=== PATIENT | female | born 2000 | race Caucasian/White ===

== ENCOUNTER 2021-06-22 18:25 | Emergency (ER) | payer OTHER ==
--- NOTE | 2021-06-24 23:24 | ERPHSYRPT ---
- History of Present Illness Physician History: Patient left without being seen Allergies/Adverse Reactions: adhesive tape Allergy (Verified 06/22/21 18:51) aloe vera Allergy (Verified 06/22/21 18:51) fentanyl Allergy (Verified 06/22/21 18:51) furosemide [From Lasix] Allergy (Verified 06/22/21 18:51) haloperidol [From Haldol] Allergy (Verified 06/22/21 18:51) magnesium Allergy (Verified 06/22/21 18:51) metoclopramide [From Reglan] Allergy (Verified 06/22/21 18:51) Home Medications: Ondansetron HCl [Zofran] 1 tab SL Q4H PRN PRN 06/22/21 [History] - Nursing Vital Signs Nursing Vital Signs: Pain Scale Pain Intensity 0 - Departure Departure Disposition: Left without being seen Clinical Impression: Patient left without being seen Condition: Stable Critical Care Time: No Referrals: DOCTOR,NO FAMILY [Primary Care Provider] - Follow up/PCP as directed
== END 2021-06-22 18:30 | disposition left against medical advice (07) ==
LOC: ED 18:25
DX: R10.9 Unspecified abdominal pain (principal); O20.9 Hemorrhage in early pregnancy, unspecified; Z3A.01 Less than 8 weeks gestation of pregnancy
CPT/HCPCS: 99281

== ENCOUNTER 2021-06-22 18:43 | Emergency (ER) | payer OTHER ==
--- NOTE | 2021-06-22 19:32 | ERPHSYRPT ---
- History of Present Illness Time Seen by Provider: 06/22/21 19:10 Source: patient Exam Limitations: no limitations Patient Subjective Stated Complaint: abdominal pain with Triage Nursing Assessment: Patient brought back to ED Via w/c and transferred self to bed. Patient A+O X3. Patient's skin pink, warm and dry. Patient complains of lower abdominal pain constant cramping 7/10 that started today with heaviness in her vagina. Patient stated earlier she had heavy bright red bleeding from vagina, but currently not bleeding. Patient complains of N/V. 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 Physician History: This is a 20-year-old white female who is approximately [address] Harp. Patient did obtain blood work earlier from [facility]. Patient has a history of stillbirth and spontaneous miscarriages in the past. Patient denies back pain. Patient is in here this evening because she had some vaginal bleeding earlier today which has stopped. However, she has had worsening suprapubic pain. She arrives to the emergency department with her vital signs stable but uncomfortable appearing Timing/Duration: today, hour(s) (1) Activites at Onset: none Quality: pressure, sharpness Onset Location: suprapubic Pain Radiation: none Severity of Pain-Max: moderate Severity of Pain-Current: moderate Sexual intercourse history: non-contributory Modifying Factors: Improves With: nothing Associated Symptoms: abdominal pain (Suprapubic), vaginal discharge (Had some vaginal bleeding that was mild earlier today but that has stopped.) Allergies/Adverse Reactions: adhesive tape Allergy (Verified 06/22/21 18:51) aloe vera Allergy (Verified 06/22/21 18:51) fentanyl Allergy (Verified 06/22/21 18:51) furosemide [From Lasix] Allergy (Verified 06/22/21 18:51) haloperidol [From Haldol] Allergy (Verified 06/22/21 18:51) magnesium Allergy (Verified 06/22/21 18:51) metoclopramide [From Reglan] Allergy (Verified 06/22/21 18:51) Home Medications: Ondansetron HCl [Zofran] 1 tab SL Q4H PRN PRN 06/22/21 [History] Hx Influenza Vaccination/Date Given: No Hx Pneumococcal Vaccination/Date Given: No Travel Risk - International Travel Have you traveled outside of the country in past 3 weeks: No - Coronavirus Screening Are you exhibiting any of the following symptoms?: No Close contact with a COVID-19 positive Pt in past 14-21 Days: No - Vaccine Status Have you recieved a Covid-19 vaccination: No - Review of Systems Constitutional: No Symptoms Eyes: No Symptoms Ears, Nose, & Throat: No Symptoms Respiratory: No Symptoms Cardiac: No Symptoms Abdominal/Gastrointestinal: Abdominal Pain (Suprapubic tenderness) Genitourinary Symptoms: No Symptoms Musculoskeletal: No Symptoms Skin: No Symptoms Neurological: No Symptoms Psychological: No Symptoms Endocrine: No Symptoms Hematologic/Lymphatic: No Symptoms Immunological/Allergic: No Symptoms All Other Systems: Reviewed and Negative - Past Medical History Pertinent Past Medical History: Yes Respiratory History: Asthma Psycho-Social History: Anxiety, Depression Other Medical History: Alpha 1. 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 Rhinoplasty twice. Right shoulder - Social History Smoking Status: Never smoker Exposure to second hand smoke: Yes Drug Use: none Patient Lives Alone: No - Female History Hx Last Menstrual Period: April Hx Now: Yes Expected Date of Delivery: 02/18/22 - Nursing Vital Signs Nursing Vital Signs: Initial Vital Signs Temperature 97.0 F 06/22/21 18:53 Pulse Rate 85 06/22/21 18:53 Respiratory Rate 18 06/22/21 18:53 Blood Pressure 107/73 06/22/21 18:53 O2 Sat by Pulse Oximetry 98 06/22/21 18:53 Pain Scale Pain Intensity 7 - Physical Exam General Appearance: no apparent distress, alert, anxiety Eye Exam: PERRL/EOMI, eyes nml inspection Ears, Nose, Throat Exam: normal ENT inspection, moist mucous membranes Neck Exam: normal inspection, non-tender, supple, full range of motion Respiratory Exam: normal breath sounds, lungs clear, airway intact, No chest tenderness, No respiratory distress Cardiovascular Exam: regular rate/rhythm, normal heart sounds, normal peripheral pulses Gastrointestinal/Abdomen Exam: soft, normal bowel sounds, tenderness (Suprapubic), No guarding, No rebound Pelvic Exam: not done Rectal Exam: not done Back Exam: normal inspection, normal range of motion, No CVA tenderness, No vertebral tenderness Extremity Exam: normal inspection, normal range of motion, pelvis stable Neurologic Exam: alert, oriented x 3, cooperative, clothing presser II-XII nml as tested, normal mood/affect, nml cerebellar function, nml station & gait, sensation nml Skin Exam: normal color, warm, dry Lymphatic Exam: No adenopathy SpO2 Interpretation: normal SpO2: 98 O2 Delivery: Room Air - Course Nursing assessment & vital signs reviewed: Yes Ordered Tests: Active Orders 24 hr Category Date Time Status IV Insertion STAT Care 06/22/21 19:34 Active OB TRANSVAGINAL [US] Stat Exams 06/22/21 20:45 Ordered AMYLASE Stat Lab 06/22/21 20:00 Completed CBC W DIFF Stat Lab 06/22/21 20:00 Completed CMP Stat Lab 06/22/21 20:00 Completed HCG, Quantitative (Inhouse) Stat Lab 06/22/21 20:00 Completed LIPASE Stat Lab 06/22/21 20:00 Completed Lactic Acid Stat Lab 06/22/21 19:58 Completed UA W/RFX UR CULTURE Stat Lab 06/22/21 19:34 Completed Lab/Rad Data: Laboratory Result Diagrams 06/22/21 20:00 06/22/21 20:00 Laboratory Results 06/22/21 06/22/21 06/22/21 Range/Units 20:00 20:00 19:58 WBC 10.2 (4.0-10.5) K/mm3 RBC 3.99 L (4.1-5.4) M/mm3 Hgb 11.0 L (12.0-16.0) gm/dl Hct 35.5 (35-47) % MCV 89.0 (78-100) fl MCH 27.6 (26-32) pg MCHC 31.0 L (32-36) g/dl RDW 12.9 (11.5-14.0) % Plt Count 309 (150-450) K/mm3 MPV 8.7 (7.5-11.0) fl Gran % 68.5 H (36.0-66.0) % Eos # (Auto) 0 (0-0.5) Absolute Lymphs (auto) 2.07 (1.0-4.6) Absolute Monos (auto) 1.14 (0.0-1.3) Lymphocytes % 20.2 L (24.0-44.0) % Monocytes % 11.1 (0.0-12.0) % Eosinophils % 0.0 (0.00-5.0) % Basophils % 0.2 (0.0-0.4) % Absolute Granulocytes 7.01 H (1.4-6.9) Basophils # 0.02 (0-0.4) Sodium 136 L (137-145) mmol/L Potassium 3.9 (3.5-5.1) mmol/L Chloride 103 (98-107) mmol/L Carbon Dioxide 26 (22-30) mmol/L Anion Gap 10.7 (5-15) MEQ/L BUN 3 L (7-17) mg/dL Creatinine 0.55 (0.52-1.04) mg/dL Estimated GFR > 60.0 ML/MIN Glucose 103 (74-106) mg/dL Lactic Acid 0.8 (0.4-2.0) Calcium 8.6 (8.4-10.2) mg/dL Total Bilirubin 0.40 (0.2-1.3) mg/dL AST 23 (14-36) U/L ALT 18 (0-35) U/L Alkaline Phosphatase 53 (38-126) U/L Serum Total Protein 6.0 L (6.3-8.2) g/dL Albumin 3.7 (3.5-5.0) g/dL Amylase 53 (30-110) U/L Lipase 36 (23-300) U/L Beta HCG, Quant 6784.5 mIU/ml Urine Color (YELLOW) Urine Appearance (CLEAR) Urine pH (5-6) Ur Specific Monroe (1.005-1.025) Urine Protein (Negative) Urine Ketones (NEGATIVE) Urine Blood (0-5) Uriel/ul Urine Nitrite (NEGATIVE) Urine Bilirubin (NEGATIVE) Urine Urobilinogen (0-1) mg/dL Ur Leukocyte Esterase (NEGATIVE) Urine WBC (Auto) (0-5) /HPF Urine RBC (Auto) (0-2) /HPF U Hyaline Cast (Auto) (0-2) /LPF U Epithel Cells (Auto) (FEW) /HPF Urine Bacteria (Auto) (NEGATIVE) /HPF Urine Mucus (Auto) (NEGATIVE) /HPF Urine Culture Reflexed (NO) Urine Glucose (NEGATIVE) mg/dL 06/22/21 Range/Units 19:34 WBC (4.0-10.5) K/mm3 RBC (4.1-5.4) M/mm3 Hgb (12.0-16.0) gm/dl Hct (35-47) % MCV (78-100) fl MCH (26-32) pg MCHC (32-36) g/dl RDW (11.5-14.0) % Plt Count (150-450) K/mm3 MPV (7.5-11.0) fl Gran % (36.0-66.0) % Eos # (Auto) (0-0.5) Absolute Lymphs (auto) (1.0-4.6) Absolute Monos (auto) (0.0-1.3) Lymphocytes % (24.0-44.0) % Monocytes % (0.0-12.0) % Eosinophils % (0.00-5.0) % Basophils % (0.0-0.4) % Absolute Granulocytes (1.4-6.9) Basophils # (0-0.4) Sodium (137-145) mmol/L Potassium (3.5-5.1) mmol/L Chloride (98-107) mmol/L Carbon Dioxide (22-30) mmol/L Anion Gap (5-15) MEQ/L BUN (7-17) mg/dL Creatinine (0.52-1.04) mg/dL Estimated GFR ML/MIN Glucose (74-106) mg/dL Lactic Acid (0.4-2.0) Calcium (8.4-10.2) mg/dL Total Bilirubin (0.2-1.3) mg/dL AST (14-36) U/L ALT (0-35) U/L Alkaline Phosphatase (38-126) U/L Serum Total Protein (6.3-8.2) g/dL Albumin (3.5-5.0) g/dL Amylase (30-110) U/L Lipase (23-300) U/L Beta HCG, Quant mIU/ml Urine Color YELLOW (YELLOW) Urine Appearance SLIGHTLY CLOUDY (CLEAR) Urine pH 5.0 (5-6) Ur Specific Monroe 1.021 (1.005-1.025) Urine Protein NEGATIVE (Negative) Urine Ketones NEGATIVE (NEGATIVE) Urine Blood NEGATIVE (0-5) Uriel/ul Urine Nitrite NEGATIVE (NEGATIVE) Urine Bilirubin NEGATIVE (NEGATIVE) Urine Urobilinogen NEGATIVE (0-1) mg/dL Ur Leukocyte Esterase TRACE (NEGATIVE) Urine WBC (Auto) 3-5 (0-5) /HPF Urine RBC (Auto) NONE (0-2) /HPF U Hyaline Cast (Auto) 6-10 (0-2) /LPF U Epithel Cells (Auto) RARE (FEW) /HPF Urine Bacteria (Auto) NONE (NEGATIVE) /HPF Urine Mucus (Auto) SLIGHT (NEGATIVE) /HPF Urine Culture Reflexed NO (NO) Urine Glucose NEGATIVE (NEGATIVE) mg/dL - Progress Progress: improved Air Movement: good Progress Note: 06/22/21 22:34 Transvaginal ultrasound shows a single intrauterine viable fetus. Approximately 5 weeks and 5 days old. No evidence of any adnexal masses or fluid collection Blood Culture(s) Obtained: No Antibiotics given: No Counseled pt/family regarding: lab results, diagnosis, need for follow-up, rad results - Departure Departure Disposition: Home Clinical Impression: Suprapubic pain, Vaginal bleeding, Condition: Stable Critical Care Time: No Referrals: DOCTOR,NO FAMILY [Primary Care Provider] - Follow up/PCP as directed Additional Instructions: Follow-up with your garbage pick up worker tomorrow morning. Call to make an appointment.
[2021-06-22 20:11] LABS: Absolute Neutrophil Ct (ANC) 7.01 (1.4-6.9); BASOPHIL % 0.2 % (0.0-0.4); Basophil (Absolute #) 0.02 (0-0.4); Eosinophil (Absolute #) 0 (0-0.5); Hematocrit 35.5 % (35-47); Lymphocyte (Absolute #) 2.07 (1.0-4.6); Lymphocytes % 20.2 % (24.0-44.0); Mean Corpuscular Hemoglobin 27.6 pg (26-32); Mean Platelet Volume 8.7 fl (7.5-11.0); Monocyte (Absolute #) 1.14 (0.0-1.3); Monocytes % 11.1 % (0.0-12.0); Neutrophil % 68.5 % (36.0-66.0); Platelet Count 309 K/mm3 (150-450); Red Blood Count 3.99 M/mm3 (4.1-5.4); Red Cell Distribution Width 12.9 % (11.5-14.0); White Blood Count 10.2 K/mm3 (4.0-10.5)
[2021-06-22 20:25] LABS: ALBUMIN 3.7 g/dL (3.5-5.0); ALKALINE PHOSPHATASE 53 U/L (38-126); AMYLASE 53 U/L (30-110); ANION GAP 10.7 MEQ/L (5-15); BLOOD UREA NITROGEN 3 mg/dL (7-17); CHLORIDE 103 mmol/L (98-107); Calcium 8.6 mg/dL (8.4-10.2); Carbon Dioxide 26 mmol/L (22-30); Creatinine 1 0.55 mg/dL (0.52-1.04); EST GLOMERULAR FILTRATION RATE > 60.0 ML/MIN; Glucose 103 mg/dL (74-106); LIPASE 36 U/L (23-300); Potassium 3.9 mmol/L (3.5-5.1); SGOT/AST 23 U/L (14-36); SGPT/ALT 18 U/L (0-35); SODIUM 136 mmol/L (137-145)
[2021-06-22 20:44] LABS: HCG, Quantitative (Inhouse) 6784.5 mIU/ml
[2021-06-22 20:56] LABS: Appearance SLIGHTLY CLOUDY (CLEAR); Bilirubin NEGATIVE (NEGATIVE); Blood NEGATIVE Ery/ul (0-5); Epithelial Cells RARE /HPF (FEW); Glucose NEGATIVE (NEGATIVE); Ketones NEGATIVE (NEGATIVE); Leukocyte Esterase TRACE (NEGATIVE); Mucus SLIGHT /HPF (NEGATIVE); Nitrite NEGATIVE (NEGATIVE); Protein,Urine Dip NEGATIVE (Negative); Specific Gravity 1.021 (1.005-1.025); Urobilinogen NEGATIVE mg/dL (0-1)
--- NOTE | 2021-06-23 08:56 | XRAY ---
Indication: Pain and bleeding. Two-dimensional transvaginal early OB ultrasound performed. Comparison: None Uterus anteverted measuring 7.9 x 4.0 x 5.3 cm. Single intrauterine gestational sac with presence of a single pole and yolk sac. heart rate 92 bpm. No subchorionic hemorrhage.. Lower uterine segment demonstrates tiny sliver of endometrial fluid. Left and right ovaries are unremarkable. No suspicious adnexal mass or free fluid. Impression: Single viable intrauterine measuring 5 weeks 5 days. Expected date confinement is February 17, 2022. Comment: Preliminary report was given.
== END 2021-06-22 23:00 | disposition home or self-care (01) ==
LOC: ED 18:43
DX: O20.9 Hemorrhage in early pregnancy, unspecified (principal); R10.9 Unspecified abdominal pain; Z3A.01 Less than 8 weeks gestation of pregnancy
CPT/HCPCS: 36415; 76817; 80053; 81001; 82150; 83605; 83690; 84702; 85025; 99283